=== PATIENT | male | born 1965 | race American Indian/Alaskan Native ===

== ENCOUNTER 2020-09-21 23:41 | Emergency (ER) | payer SELFPAY ==
[2020-09-21 23:52] VITALS: BP 130/102
--- NOTE | 2020-09-22 00:30 | Emergency Department Report ---
- General Chief Complaint: Wound/Laceration Stated Complaint: LACERATION TO RIGHT THUMB Time Seen by Provider: 09/22/20 00:14 Source: patient Mode of arrival: Ambulatory Limitations: No Limitations - History of Present Illness Initial Comments: 55-year-old male presents emerged department complaining of laceration to the right thumb while cutting some onions with a greater/mandolin causing avulsion- like laceration and bleeding which is continued despite him holding pressure.. Reports no numbness, no tingling, no fever, chills, sweats Location: other Extremity Location: Right: Hand Patient Tetanus UTD: No Associated Symptoms: none. denies: suspect foreign body present, unable to move injured part, nausea/vomiting, fever - Related Data Allergies Allergy/AdvReac Type Severity Reaction Status Date / Time No Known Allergies Allergy Verified 09/21/20 23:49 ED Review of Systems ROS: Stated complaint: LACERATION TO RIGHT THUMB Other details as noted in HPI Comment: All other systems reviewed and negative ED Past Medical Hx - Past Medical History Previous Medical History?: No - Surgical History Past Surgical History?: No - Social History Smoking Status: Current Every Day Smoker Substance Use Type: Alcohol ED Physical Exam - General Limitations: No Limitations General appearance: alert, in no apparent distress - Head Head exam: Present: atraumatic, normocephalic - Eye Eye exam: Present: normal appearance, PERRL, EOMI Pupils: Present: normal accommodation - ENT ENT exam: Present: normal exam, mucous membranes moist. Absent: TM's normal bilaterally - Neck Neck exam: Present: normal inspection, full ROM - Respiratory Respiratory exam: Present: normal lung sounds bilaterally. Absent: respiratory distress - Cardiovascular Cardiovascular Exam: Present: regular rate, normal rhythm. Absent: systolic murmur, diastolic murmur, rubs, gallop - GI/Abdominal GI/Abdominal exam: Present: soft, normal bowel sounds - Rectal Rectal exam: Present: deferred - Extremities Exam Extremities exam: Present: normal inspection, tenderness - Expanded Upper Extremity Exam Right Hand L/R Front: 1 - Positive: avulsion - Back Exam Back exam: Present: normal inspection. Absent: CVA tenderness (R), CVA tenderness (L) - Neurological Exam Neurological exam: Present: alert, oriented X3, CN II-XII intact - Psychiatric Psychiatric exam: Present: normal affect, normal mood. Absent: anxious, flat affect, manic - Skin Skin exam: Present: warm, dry, intact, normal color. Absent: rash, cyanosis, diaphoretic, erythema, pallor, abrasion, ecchymosis ED Course Vital Signs 09/21/20 23:49 Temperature 98.0 F Pulse Rate 98 H Respiratory 18 Rate Blood Pressure 130/102 O2 Sat by Pulse 94 Oximetry - Procedure Description Procedures done: The wound was prepped and draped in sterile fashion anesthesia with bupivacaine for a block. Surgicel dressing was placed with no complication Critical care attestation.: If time is entered above; I have spent that time in minutes in the direct care of this critically ill patient, excluding procedure time. ED Disposition Clinical Impression: Fingernail avulsion, partial Disposition: DC-01 TO HOME OR SELFCARE Is pt being admited?: No Does the pt Need Aspirin: No Condition: Stable Instructions: Wound Care, Adult Additional Instructions: Please follow-up for wound reevaluation in 48 hours with the primary care provider Referrals: KEKE RIZZO MD [Primary Care Provider] - 3-5 Days [facility] [Provider Group] - 3-5 Days
== END 2020-09-22 00:59 | disposition home or self-care (01) ==
LOC: ED 23:41
DX: S61.101A Unspecified open wound of right thumb with damage to nail, initial encounter (principal); F17.200 Nicotine dependence, unspecified, uncomplicated; W26.0XXA Contact with knife, initial encounter; Y93.89 Activity, other specified; Y92.89 Other specified places as the place of occurrence of the external cause; Y99.8 Other external cause status